=== PATIENT | female | born 1985 | race Caucasian/White ===

== ENCOUNTER → 2018-01-01 | Emergency (ER) | payer OTHER ==
[~2018-01-01] VITALS: Ht 160 cm; Wt 74.8 kg
[~2018-01-01] MED LIST: FOLIC ACID1 MG; PANADOL EXTRA500 MG
== END | disposition home or self-care (01) ==
LOC: ER 16:19
DX: R04.0 Epistaxis (principal); B34.9 Viral infection, unspecified

== ENCOUNTER 2018-01-18 15:36 | Inpatient (IN) | payer OTHER ==
[~2018-01-18] VITALS: Ht 157.5 cm; Wt 74.8 kg
[2018-02-11] MEDS ORDERED: PRENATAL FORMU1 EAC1 PO (09:47)
[2018-02-11] MEDS ORDERED: PRENATAL 19 TA1 EACH PO (09:48)
[2018-02-11] MEDS ORDERED: IRON325 MG PO (09:49)
== END 2018-02-13 12:23 | DRG 775 ==
LOC: LDR 02-11 09:04 → SURG-SUITE 02-11 17:28 → OB/GYN 02-17 14:30
PROC: 10E0XZZ Delivery of Products of Conception, External Approach (ICD-10-PCS; principal; 2018-02-11)
PROC: 0UQGXZZ Repair Vagina, External Approach (ICD-10-PCS; 2018-02-11)
PROC: 4A1HXCZ Monitoring of Products of Conception, Cardiac Rate, External Approach (ICD-10-PCS; 2018-02-11)
DX: O71.4 Obstetric high vaginal laceration alone (principal); Z3A.39 39 weeks gestation of pregnancy; Z37.0 Single live birth

== ENCOUNTER 2018-02-01 12:18 | Outpatient (CLI) | payer OTHER | END 2018-02-01 14:30 | disposition home or self-care (01) | LOC: NST 12:18 | DX: Z34.83 Encounter for supervision of other normal pregnancy, third trimester (principal) ==

== ENCOUNTER 2019-05-07 00:17 | Emergency (ER) | payer OTHER ==
[~2019-05-07] VITALS: Ht 160 cm; Wt 63.5 kg
[~2019-05-07 00:17] MED LIST changes: +IRON325 MG PO; +PRENATAL 19 TA1 EACH PO; +PRENATAL FORMU1 EAC1 PO
== END 2019-05-07 03:36 | disposition home or self-care (01) ==
LOC: ER 00:17
DX: G44.89 Other headache syndrome (principal)

== ENCOUNTER 2021-06-20 12:15 | Emergency (ER) | payer OTHER ==
[~2021-06-20] VITALS: Ht 157.5 cm; Wt 63.5 kg
== END 2021-06-20 15:48 | disposition home or self-care (01) ==
LOC: ER 12:15
DX: N39.0 Urinary tract infection, site not specified (principal)

== ENCOUNTER 2022-07-21 16:20 | Emergency (ER) | payer OTHER ==
[~2022-07-21] VITALS: Ht 160 cm; Wt 65.8 kg
[~2022-07-21 16:20] MED LIST changes: +CEPHALEXIN500 MG PO; +DICLOFENAC POTA50 MG PO
== END 2022-07-21 21:19 | disposition home or self-care (01) ==
LOC: ER 16:20
DX: M94.0 Chondrocostal junction syndrome [Tietze] (principal)

== ENCOUNTER 2023-06-29 08:33 | Emergency (ER) | payer OTHER ==
[~2023-06-29] VITALS: Ht 160 cm; Wt 65.8 kg
[2023-06-29] MEDS ORDERED: DEXTROSE 5 %-0.45 % SOD CHLORD 500 ML IV STA (10:08)
[2023-06-29] MEDS ORDERED: FAMOtidine 10 MG/ML (4ML VIAL) IV STA (10:08)
[2023-06-29 10:50] LABS: HEMATOCRIT 36.7 % (36.0-45.00); HEMOGLOBIN 12.9 g/dL (12.0-15.00); MEAN CELL VOLUME 92.9 fL (80.00-100.00); MEAN CORPUSCULAR HEMOGLOBIN 32.6 pg (27.00-32.0); MEAN CORPUSCULAR HGB CONC 35.1 g/dl (32.0-36.0); PLATELET COUNT 334 K/uL (150-450); RED BLOOD COUNT 3.95 M/uL (4.00-6.00); RED CELL DISTRIBUTION WIDTH 12.6 % (11.5-14.5)
[2023-06-29 11:21] LABS: BILIRUBIN TOTAL 0.49 mg/dL (0.3-1.2); CALCIUM 9.1 mg/dL (8.5-10.1); CREATININE SERUM 0.66 mg/dL (0.55-1.02); GFR 101.91; GLOBULINA 3.9 G/DL (2.4-3.5); POTASSIUM 3.96 mEq/L (3.5-5.1); TOTAL PROTEIN 7.9 gm/dL (6.4-8.2)
[2023-06-29 13:26] LABS: URINE APPEARANCE Clear; URINE BILIRRUBIN Negative (NEGATIVE); URINE BLOOD Negative; URINE COLOR Yellow; URINE GLUCOSE Negative (NEGATIVE); URINE LEUKOCYTE Negative; URINE NITRATE Negative; URINE PROTEIN Negative (NEGATIVE); URINE UROBILINOGEN 0.2 E.U./dl
[2023-06-29 13:29] LABS: URINE BACTERIA 1569.8 uL (0.0-1933); URINE EPITHELIAL CELLS 32.2 uL (0.0-38.8); URINE RBC 2.2 uL (0.0-20.8); URINE WBC 7.8 uL (0.0-23.2)
[2023-06-29] MEDS ORDERED: PEPCID AC20 MG PO (14:58)
[2023-06-29] MEDS ORDERED: PRILOSEC OTC20 MG PO (14:58)
== END 2023-06-29 15:10 | disposition home or self-care (01) ==
LOC: ER 08:33
PROVIDERS: Emergency Medicine
DX: K29.90 Gastroduodenitis, unspecified, without bleeding (principal)

== ENCOUNTER 2024-03-22 10:06 | Emergency (ER) | payer OTHER ==
[~2024-03-22] VITALS: Ht 160 cm; Wt 63.0 kg
[~2024-03-22 10:06] MED LIST changes: +PEPCID AC20 MG PO; +PRILOSEC OTC20 MG PO
[2024-03-22 11:03] LABS: HEMATOCRIT 36.5 % (36.0-45.00); HEMOGLOBIN 12.8 g/dL (12.0-15.00); MEAN CELL VOLUME 91.5 fL (80.00-100.00); MEAN CORPUSCULAR HEMOGLOBIN 32.2 pg (27.00-32.0); MEAN CORPUSCULAR HGB CONC 35.2 g/dl (32.0-36.0); PLATELET COUNT 351 K/uL (150-450); RED BLOOD COUNT 3.98 M/uL (4.00-6.00); RED CELL DISTRIBUTION WIDTH 12.9 % (11.5-14.5)
[2024-03-22 11:36] LABS: BILIRUBIN TOTAL 0.35 mg/dL (0.3-1.2); CALCIUM 8.9 mg/dL (8.5-10.1); CREATININE SERUM 0.74 mg/dL (0.55-1.02); GFR 88.8; GLOBULINA 3.9 G/DL (2.4-3.5); POTASSIUM 3.67 mEq/L (3.5-5.1); TOTAL PROTEIN 7.9 gm/dL (6.4-8.2)
[2024-03-22] MEDS ORDERED: BUTALB/ACETAMINOPHEN/CAFFEINE 1 TAB TABLET PO ONE (14:30)
[2024-03-22] MEDS ORDERED: GENTAMICIN SULFA5 ML OP (14:52)
[2024-03-22] MEDS ORDERED: AMOX-CLAV 875-1 EACH PO (14:53)
[2024-03-22 15:06] VITALS: BP 107/63; O2SAT 100
== END 2024-03-22 15:08 | disposition home or self-care (01) ==
LOC: ER 10:06
PROVIDERS: General Practice
DX: S09.8XXA Other specified injuries of head, initial encounter (principal); X83.8XXA Intentional self-harm by other specified means, initial encounter; Y93.89 Activity, other specified; Y92.89 Other specified places as the place of occurrence of the external cause; Y99.8 Other external cause status; H10.32 Unspecified acute conjunctivitis, left eye; R51.9 Headache, unspecified; R42 Dizziness and giddiness; Z20.822 Contact with and (suspected) exposure to COVID-19

== ENCOUNTER 2024-03-26 10:22 | Emergency (ER) | payer OTHER ==
[~2024-03-26] VITALS: Ht 160 cm; Wt 63.5 kg
[~2024-03-26 10:22] MED LIST changes: +AMOX-CLAV 875-1 EACH PO; +GENTAMICIN SULFA5 ML OP
[2024-03-26 11:35] LABS: HEMATOCRIT 37.4 % (36.0-45.00); HEMOGLOBIN 13.2 g/dL (12.0-15.00); MEAN CELL VOLUME 91.8 fL (80.00-100.00); MEAN CORPUSCULAR HEMOGLOBIN 32.4 pg (27.00-32.0); MEAN CORPUSCULAR HGB CONC 35.3 g/dl (32.0-36.0); PLATELET COUNT 384 K/uL (150-450); RED BLOOD COUNT 4.07 M/uL (4.00-6.00); RED CELL DISTRIBUTION WIDTH 12.9 % (11.5-14.5)
[2024-03-26 11:59] LABS: ALBUMIN 4.1 gm/dL (3.4-5.0); BILIRUBIN TOTAL 0.43 mg/dL (0.3-1.2); CALCIUM 9.5 mg/dL (8.5-10.1); CREATININE SERUM 0.75 mg/dL (0.55-1.02); GFR 87.43; GLOBULINA 3.9 G/DL (2.4-3.5); POTASSIUM 4.09 mEq/L (3.5-5.1)
[2024-03-26 12:13] LABS: PH,URINE 6.5 (5.0-8.0); URINE APPEARANCE Clear; URINE BILIRRUBIN Negative (NEGATIVE); URINE BLOOD Negative; URINE COLOR Yellow; URINE GLUCOSE Negative (NEGATIVE); URINE KETONE Trace (NEGATIVE); URINE LEUKOCYTE Negative; URINE NITRATE Negative; URINE PROTEIN Negative (NEGATIVE); URINE UROBILINOGEN 0.2 E.U./dl
[2024-03-26 12:16] LABS: URINE BACTERIA 26.4 uL (0.0-1933); URINE EPITHELIAL CELLS 106.1 uL (0.0-38.8); URINE RBC 2.4 uL (0.0-20.8); URINE WBC 4.9 uL (0.0-23.2)
[2024-03-26 12:47] LABS: URINE YEAST NEGATIVE /hpf
== END 2024-03-26 13:56 | disposition home or self-care (01) ==
LOC: ER 10:24
PROVIDERS: General Practice
DX: R53.1 Weakness (principal)

== ENCOUNTER 2024-03-30 15:09 | Emergency (ER) | payer OTHER ==
[~2024-03-30] VITALS: Ht 157.5 cm; Wt 63.5 kg
[2024-03-30] MEDS ORDERED: DEXAMETHASONE SODIUM PHOSPHATE 4 MG/ML VIAL IM STA (16:37)
[2024-03-30] MEDS ORDERED: ORPHENADRINE CITRATE 30 MG/ML AMPUL IM STA (16:37)
[2024-03-30] MEDS ORDERED: KETOROLAC TROMETHAMINE 30 MG VIAL IM STA (16:38)
[2024-03-30 17:09] LABS: HEMATOCRIT 36.4 % (36.0-45.00); HEMOGLOBIN 12.6 g/dL (12.0-15.00); MEAN CELL VOLUME 93.6 fL (80.00-100.00); MEAN CORPUSCULAR HEMOGLOBIN 32.4 pg (27.00-32.0); MEAN CORPUSCULAR HGB CONC 34.6 g/dl (32.0-36.0); PLATELET COUNT 391 K/uL (150-450); RED BLOOD COUNT 3.89 M/uL (4.00-6.00); RED CELL DISTRIBUTION WIDTH 12.9 % (11.5-14.5)
[2024-03-30 17:51] LABS: ALBUMIN 4.2 gm/dL (3.4-5.0); BILIRUBIN TOTAL 0.23 mg/dL (0.3-1.2); CALCIUM 9.4 mg/dL (8.5-10.1); CREATININE SERUM 0.66 mg/dL (0.55-1.02); GFR 101.33; GLOBULINA 3.9 G/DL (2.4-3.5); POTASSIUM 3.88 mEq/L (3.5-5.1); TOTAL PROTEIN 8.1 gm/dL (6.4-8.2)
== END 2024-03-30 21:02 | disposition home or self-care (01) ==
LOC: ER 15:11
DX: R45.89 Other symptoms and signs involving emotional state (principal)
CPT/HCPCS: 36415; 70491; Q9965

== ENCOUNTER 2024-04-04 11:16 | Emergency (ER) | payer OTHER ==
[~2024-04-04] VITALS: Ht 160 cm; Wt 63.5 kg
[2024-04-04 11:34] VITALS: BP 121/80; O2SAT 99
== END 2024-04-04 16:25 | disposition home or self-care (01) ==
LOC: ER 11:18
DX: R52 Pain, unspecified (principal)